=== PATIENT | male | born 1995 | race Caucasian/White ===

== ENCOUNTER 2016-07-08 13:23 | Emergency (ER) | payer MEDICAID ==
[2016-07-08 14:30] VITALS: BP 148/82
--- NOTE | 2016-07-08 15:26 | EDM.PDOC ---
ED HPI GENERAL MEDICAL PROBLEM - General Chief Complaint: General Stated Complaint: POSSIBLE SEIZURE FROM MEDS Time Seen by Provider: 07/08/16 15:26 Source of Information: Reports: Patient History Limitations: Reports: No limitations - History of Present Illness INITIAL COMMENTS - FREE TEXT/NARRATIVE: 21-year-old male presents with history of anxiety and insomnia. Recently hospitalized at [facility] with these problems and associated delusions. Spent 3 weeks in the hospital and discharged on fluoxetine and lorazepam. Lorazepam supposedly given 3 times daily but patient finds it difficult to do so Duane night drank some beer and slept well. However last night had difficulty with sleeping took Ativan at 2:30 AM but didn't fall asleep until 5 AM. Woke up at 9 AM to go to [employer] and noticed that his boxers were wet and he had been incontinent. No previous history of similar episode Presents because of the episode of incontinence but has not noted any other urinary symptoms. 10 days ago [facility]. Otherwise has not used any street drugs. - Related Data Allergies Allergy/AdvReac Type Severity Reaction Status Date / Time No Known Allergies Allergy Verified 11/05/14 22:29 Home Meds: Home Meds FLUoxetine [PROzac] 07/08/16 [History] LORazepam [LORazepam] 07/08/16 [History] Tretinoin [Tretinoin] 07/08/16 [History] Past Medical History - Past Surgical History GI Surgical History: Reports: Hernia, inguinal Social & Family History - Tobacco Use Smoking Status *Q: Never Smoker - Recreational Drug Use Recreational Drug Use: No ED ROS GENERAL - Review of Systems Review Of Systems: See Below Constitutional: Reports: no symptoms HEENT: Reports: No symptoms Respiratory: Reports: no symptoms Cardiovascular: Reports: No symptoms Endocrine: Reports: no symptoms GI/Abdominal: Reports: No symptoms : Reports: incontinence Musculoskeletal: Reports: no symptoms Skin: Reports: no symptoms Neurological: Reports: other (insomnia) Psychiatric: Reports: Anxiety ED EXAM, GENERAL - Physical Exam Exam: See Below Exam Limited By: No limitations General Appearance: alert, WD/WN, no apparent distress Eye Exam: bilateral eye: EOMI, normal fundi, normal inspection, PERRL Ears: normal external exam, normal canal, hearing grossly normal, normal TMs Nose: normal inspection Throat/Mouth: Normal inspection, Normal lips, Normal teeth, Normal gums, Normal oropharynx, Normal voice, No airway compromise Head: atraumatic, normocephalic Neck: normal inspection, supple, non-tender, full range of motion Respiratory/Chest: no respiratory distress, lungs clear, normal breath sounds Cardiovascular: regular rate, rhythm Extremities: normal inspection, normal range of motion, non-tender Neurological: alert, oriented, CN II-XII intact, normal cognition, normal gait, no motor/sensory deficits Psychiatric: normal affect, anxious Skin Exam: Warm, Dry, Intact Course - Vital Signs Text/Narrative:: Urinalysis is unremarkable and urine for drug screen shows only evidence of benzodiazepines as expected The patient gives no history to suggest postictal and has no history of trauma or infection Suspect incontinence related to medication. Mother would like to try trazodone to help sleep and will give prescription of 50 mg taken at bedtime Patient to followup with primary care physician this week Last Recorded V/S: Last Vital Signs Temp 98.1 F 07/08/16 14:29 Pulse 91 07/08/16 14:29 Resp 14 07/08/16 14:29 BP 148/82 H 07/08/16 14:29 Pulse Ox 97 07/08/16 14:29 - Orders/Labs/Meds Labs: Laboratory Tests 07/08/16 07/08/16 Range/Units 15:44 15:44 Urine Color Yellow Urine Appearance Clear Urine pH 7.0 (4.5-8.0) Ur Specific [place] 1.010 (1.008-1.030) Urine Protein Negative (NEGATIVE) mg/dL Urine Glucose (UA) Normal (NEGATIVE) mg/dL Urine Ketones Negative (NEGATIVE) mg/dL Urine Occult Blood Negative (NEGATIVE) Urine Nitrite Negative (NEGAITVE) Urine Bilirubin Negative (NEGATIVE) Urine Urobilinogen Normal (NORMAL) mg/dL Ur Leukocyte Esterase Negative (NEGATIVE) Urine RBC 0-5 (0-5) Urine WBC Not seen (0-5) Ur Epithelial Cells Rare Amorphous Sediment Not seen Urine Bacteria Rare Urine Mucus Not seen Urine Opiates Screen Negative (NEGATIVE) Ur Oxycodone Screen Negative (NEGATIVE) Urine Methadone Screen Negative (NEGATIVE) Ur Propoxyphene Screen Negative (NEGATIVE) Ur Barbiturates Screen Negative (NEGATIVE) Ur Tricyclics Screen Negative (NEGATIVE) Ur Phencyclidine Scrn Negative (NEGATIVE) Ur Amphetamine Screen Negative (NEGATIVE) U Methamphetamines Scrn Negative (NEGATIVE) Urine MDMA Screen Negative (NEGATIVE) U Benzodiazepines Scrn Positive H (NEGATIVE) U Cocaine Metab Screen Negative (NEGATIVE) U Marijuana (THC) Screen Negative (NEGATIVE) Departure - Departure Time of Disposition: 16:23 Disposition: Home, Self-Care 01 Condition: good Clinical Impression: Insomnia Forms: ED Department Discharge Additional Instructions: Followup with Dr. Quiroz this week Continue taking the Prozac Use trazodone at bedtime
== END 2016-07-08 16:30 | disposition home or self-care (01) ==
LOC: JP.ED 13:23
DX: G47.00 Insomnia, unspecified (principal); Z79.899 Other long term (current) drug therapy
CPT/HCPCS: 80305; 81001; 99284